=== PATIENT | female | born 1960 | race Caucasian/White ===

== ENCOUNTER 2017-01-17 18:02 | Emergency (ER) | payer OTHER ==
[~2017-01-17] VITALS: Ht 162.6 cm; Wt 65.4 kg
[~2017-01-17 18:02] MED LIST: SULF1TAB47 PO; Z.0.NO CURRENT MEDS
[2017-01-17 18:10] VITALS: BP 129/79; PULSE 70; RESP 18; TEMP 98.5; O2SAT 100
[2017-01-17] MEDS ORDERED: SODIUM CHLOR 0.9% 1000 ML INJ 1,000 ML IV ONE (18:24)
[2017-01-17] MEDS ORDERED: MORPHINE SULFATE 4 MG/ML INJ IV PUSH ONE (18:30)
[2017-01-17] MEDS ORDERED: diphenhydrAMINE HCL 50 MG/ML VIAL IVP ONE (18:30)
[2017-01-17] MEDS ORDERED: SODIUM CHLORIDE 0.9% FLUSH 10 ML FLUSH IVF PRN (18:30)
[2017-01-17] MEDS ORDERED: PROCHLORPERAZINE INJ 10 MG/2 ML VIAL IVP ONE (18:30)
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
--- NOTE | 2017-01-17 18:55 | RADRPT ---
EXAM DATE/TIME: 01/17/2017 18:42 [facility] COMPARISON: No previous studies available for comparison. INDICATIONS : Cephalgia for three weeks. RADIATION DOSE: 63.17 CTDIvol (mGy) MEDICAL HISTORY : None SURGICAL HISTORY : Hysterectomy. ENCOUNTER: Initial ACUITY: 3 weeks PAIN SCALE: 9/10 LOCATION: Bilateral head TECHNIQUE: Multiple contiguous axial images were obtained of the head. Using automated exposure control and adj ustment of the mA and/or kV according to patient size, radiation dose was kept as low as reasonably a chievable to obtain optimal diagnostic quality images. DICOM format image data is available electro nically for review and comparison. FINDINGS: CEREBRUM: The ventricles are normal for age. No evidence of midline shift, mass lesion, hemorrhage or acute in farction. No extra-axial fluid collections are seen. POSTERIOR FOSSA: The cerebellum and brainstem are intact. The 4th ventricle is midline. The cerebellopontine angle i s unremarkable. EXTRACRANIAL: The visualized portion of the orbits is intact. SKULL: The calvaria is intact. No evidence of skull fracture. CONCLUSION: Negative noncontrast CT. Nick Thomas MD on January 17, 2017 at 18:53 Board Certified Radiologist. This report was verified electronically.
[2017-01-17] MEDS ORDERED: MORPHINE SULFATE 8 MG/ML INJ IV PUSH ONE (19:00)
[2017-01-17] MEDS ORDERED: BUTA1CAP PO (19:04)
[2017-01-17] MEDS ORDERED: KETOROLAC TROMETHAMINE 30 MG/ML (IVP) VIAL IV PUSH ONE (19:15)
[2017-01-17 19:19] VITALS: BP 136/73; PULSE 66; RESP 16; O2SAT 99
[2017-01-17] MEDS ORDERED: MELO-1 PO (19:21)
[2017-01-17] MEDS ORDERED: CITA40TA4 PO (19:21)
[2017-01-17 19:48] VITALS: RESP 16
== END 2017-01-17 21:12 | disposition home or self-care (01) ==
LOC: PHED 18:02
DX: R51 Headache (principal); R11.10 Vomiting, unspecified; M79.604 Pain in right leg; M54.10 Radiculopathy, site unspecified; M54.30 Sciatica, unspecified side
CPT/HCPCS: 70450; 96361; 96374; 96375; 99284; J0780; J1200; J1885; J2270; J7030